=== PATIENT | female | born 1995 | race Caucasian/White ===

== ENCOUNTER 2019-02-26 16:25 | Emergency (ER) | payer MEDICAID ==
[~2019-02-26] VITALS: Ht 162.6 cm; Wt 91.6 kg
[2019-02-26 16:39] VITALS: Ht 162.6 cm; Wt 91.6 kg
[2019-02-26 19:15] VITALS: BP 120/75
== END 2019-02-26 19:15 | disposition home or self-care (01) ==
LOC: ED 16:25
DX: O26.893 Other specified pregnancy related conditions, third trimester (principal); H60.93 Unspecified otitis externa, bilateral